=== PATIENT | male | born 1960 | race Caucasian/White ===

== ENCOUNTER → 2017-08-30 | Outpatient (CLI) | payer MEDICARE, SELFPAY ==
[~2017-08-30] MED LIST: ACET325 PO; AMLO5 PO; ASPI325EC PO; ASPI81CH; ASPI81CH PO; ATEN25; ATEN50; ATEN50 PO; ATOR80; ATOR80 PO; Amoxicillin875 MG PO; BISA5EC PO; BUPR100ER PO; Bactrim 400-801 EACH PO; CILO100 PO; CILO50; CILO50 PO; CITA20 PO; CLON1 PO; CLOP75; CLOP75 PO; COMBIVENT RESPIM4 GM INH; Cleocin HCl150 MG PO; DIPH50 PO; ESCI10; GABA600; HYDHCL25; HYDHCL25 PO; HYDPAM50 PO; Hair, Skin & N1 EACH PO; LATUDA40 MG PO; LISI20 PO; LISI5; LISI5 PO; MEGE40T; Megace Es625 MG/5 M PO; Milk Of Ma400 MG/5 M PO; Nicotine Patch1 EAC5 TD; PANT40; PANT40 PO; PRAZ1 PO; PRAZ2; PRAZ2 PO; QUET100 PO; QUET200; QUET200 PO; QUET25; TRAM50 PO; TRAZ50; Ultram50 MG PO; VENL150ER PO; VENL75ER; VENL75ER PO; VENLAFAXINE HCL75 MG PO; WARF5 PO; XARELTO20 MG PO; Zofran Odt4 MG SL
[2017-08-30 13:27] LABS: BASOPHILS ABSOLUTE AUTO 0.08 K/mm3 (0.00-0.23); BASOPHILS PERCENT AUTO 2 % (0-2); EOSINOPHILS ABSOLUTE AUTO 0.39 K/mm3 (0.00-0.68); EOSINOPHILS PERCENT AUTO 8 % (0-6); Hematocrit 39.9 % (37.0-53.0); IMMATURE GRAN ABSOLUTE AUTO 0.01 K/mm3 (0.00-0.10); IMMATURE GRAN PERCENT AUTO 0 % (0-1); LYMPHOCYTES ABSOLUTE AUTO 1.18 K/mm3 (0.84-5.20); LYMPHOCYTES PERCENT AUTO 24 % (21-46); MONOCYTES ABSOLUTE AUTO 0.51 K/mm3 (0.16-1.47); MONOCYTES PERCENT AUTO 10 % (4-13); Mean Corpuscular HGB 30.7 pg (26.0-34.0); Mean Corpuscular HGB Conc 32.6 g/dL (31.5-36.5); Mean Corpuscular Volume 94 fL (80-100); Mean Platelet Volume 10.3 fL (9.1-12.4); NEUTROPHILS ABSOLUTE AUTO 2.81 K/mm3 (1.96-9.15); NEUTROPHILS PERCENT AUTO 57 % (41-73); Platelet Count 234 K/mm3 (150-400); RDW Coefficient Variation 13.3 % (11.7-14.2); RDW Standard Deviation 46.1 fL (35.1-46.3); Red Blood Cell Count 4.24 M/mm3 (4.30-5.90); White Blood Cell Count 4.98 K/mm3 (4.00-11.30)
[2017-08-30 13:42] LABS: International Normalized Ratio 0.96
[2017-08-30 14:56] LABS: Anion Gap 8 mmol/L (6-16); Blood Urea Nitrogen 8 mg/dL (8-24); Bun/Creatinine Ratio 9.1 (12.0-20.0); CO2, Blood 26 mmol/L (21-32); Calcium, Blood 9.1 mg/dL (8.5-10.1); Chloride, Blood 102 mmol/L (98-108); Creatinine, Blood 0.88 mg/dL (0.60-1.20); Glomerular Filtration Rate >60 (60-); Glucose, Blood 95 mg/dL (70-99); Potassium, Blood 4.2 mmol/L (3.5-5.5); Sodium, Blood 136 mmol/L (136-145)
== END | disposition home or self-care (01) ==
LOC: LAB 11:30 → LAB SHORT 11:30 → EDSTATUS 08-14 15:40 → LAB FUT 08-14 15:40
PROVIDERS: Internal Medicine Interventional Cardiology
DX: E78.5 Hyperlipidemia, unspecified (principal); I10 Essential (primary) hypertension; I73.9 Peripheral vascular disease, unspecified; R79.89 Other specified abnormal findings of blood chemistry
CPT/HCPCS: 80048; 85025; 85610

== ENCOUNTER 2017-08-31 05:29 | Day surgery (SDC) | payer MEDICARE, SELFPAY ==
[~2017-08-31] VITALS: Ht 177.8 cm; Wt 62.0 kg
[~2017-08-31 05:29] MED LIST changes: -Bactrim 400-801 EACH PO; -DIPH50 PO; -LATUDA40 MG PO
[2017-08-31] MEDS ORDERED: DIPH50 PO (06:39)
== END 2017-08-31 14:30 | disposition home or self-care (01) ==
LOC: MHTC 05:29
PROC: 047J3DZ Dilation of Left External Iliac Artery with Intraluminal Device, Percutaneous Approach (ICD-10-PCS; principal; 2017-08-31)
DX: I70.212 Atherosclerosis of native arteries of extremities with intermittent claudication, left leg (principal); I10 Essential (primary) hypertension; F17.210 Nicotine dependence, cigarettes, uncomplicated; Z86.73 Personal history of transient ischemic attack (TIA), and cerebral infarction without residual deficits
CPT/HCPCS: 37221; 75625; 75710; 85347; 93005; 93010; 99152; 99153; C1725; C1769; C1876; C1894; J1644; J2250; J2720; J3010; J7030; J7040; Q9967

== ENCOUNTER 2017-10-11 17:59 | Emergency (ER) | payer MEDICARE, SELFPAY ==
[~2017-10-11] VITALS: Ht 177.8 cm; Wt 60.8 kg
[~2017-10-11 17:59] MED LIST changes: +DIPH50 PO
[2017-10-11] MEDS ORDERED: LATUDA40 MG PO (18:04)
[2017-10-11] MEDS ORDERED: Bactrim 400-801 EACH PO (19:21)
== END 2017-10-11 19:35 | disposition home or self-care (01) ==
LOC: ER 17:59
DX: M96.841 Postprocedural hematoma of a musculoskeletal structure following other procedure (principal); Z88.8 Allergy status to other drugs, medicaments and biological substances; Z79.899 Other long term (current) drug therapy; Z79.82 Long term (current) use of aspirin; I10 Essential (primary) hypertension; F32.9 Major depressive disorder, single episode, unspecified; F41.9 Anxiety disorder, unspecified; E78.5 Hyperlipidemia, unspecified; F43.10 Post-traumatic stress disorder, unspecified; Z87.891 Personal history of nicotine dependence
CPT/HCPCS: 76882; 99284

== ENCOUNTER → 2017-11-07 | Outpatient (CLI) | payer MEDICARE, SELFPAY ==
[~2017-11-07] MED LIST changes: +Bactrim 400-801 EACH PO; +LATUDA40 MG PO
== END ==
LOC: LAB 14:25 → LAB SHORT 14:25
DX: L02.91 Cutaneous abscess, unspecified (principal)
CPT/HCPCS: 87070; 87075; 87077; 87186; 87205

== ENCOUNTER → 2018-01-04 | Outpatient (CLI) | payer MEDICARE, SELFPAY ==
[2018-01-04 16:23] LABS: U Amphetamine Screen Not Detected; U Barbituate Screen Not Detected; U Benzodiazapine Screen Not Detected; U Buprenorphine Screen Not Detected; U Cannabinoids Screen DETECTED; U Cocaine Screen Not Detected; U Methadone Screen Not Detected; U Methamphetamine Screen Not Detected; U Opiates Screen Not Detected; U Oxycodone Screen Not Detected; U Phencyclidine Screen Not Detected; U Propoxyphene Screen Not Detected
== END ==
LOC: LAB SHORT 15:00
PROVIDERS: Nurse Practitioner Family
DX: Z51.81 Encounter for therapeutic drug level monitoring (principal); Z79.899 Other long term (current) drug therapy

== ENCOUNTER → 2018-07-11 | Outpatient (CLI) | payer MEDICARE ==
[2018-07-11 14:58] LABS: U Amphetamine Screen Not Detected; U Barbituate Screen Not Detected; U Benzodiazapine Screen DETECTED; U Buprenorphine Screen Not Detected; U Cannabinoids Screen DETECTED; U Cocaine Screen Not Detected; U Methadone Screen Not Detected; U Methamphetamine Screen Not Detected; U Opiates Screen Not Detected; U Oxycodone Screen Not Detected; U Phencyclidine Screen Not Detected
[2018-07-11 16:37] LABS: U Propoxyphene Screen Not Detected
== END ==
LOC: LAB SHORT 11:30 → LAB 11:30
PROVIDERS: Nurse Practitioner Family
DX: Z51.81 Encounter for therapeutic drug level monitoring (principal); Z79.899 Other long term (current) drug therapy

== ENCOUNTER 2018-11-21 12:12 | Day surgery (SDC) | payer MEDICARE ==
[~2018-11-21] VITALS: Ht 177.8 cm; Wt 62.0 kg
[~2018-11-21 12:12] MED LIST changes: +ANORO ELLIPTA1 EACH INH; +Cilostazol50 MG PO; +ESZO2 PO; +LO-DOSE ASPIRIN81 MG PO; +MULTI VITAMIN1 EACH PO; +Oxcarbazepine600 MG PO; +Prinivil10 MG PO; +VRAYLAR4.5 MG PO
== END 2018-11-21 13:53 | disposition home or self-care (01) ==
LOC: ORSCSDS 12:12
PROVIDERS: Internal Medicine Gastroenterology
PROC: 0DBK8ZX Excision of Ascending Colon, Via Natural or Artificial Opening Endoscopic, Diagnostic (ICD-10-PCS; principal; 2018-11-21 13:30)
DX: Z12.11 Encounter for screening for malignant neoplasm of colon (principal); Z86.010 Personal history of colon polyps; D12.2 Benign neoplasm of ascending colon; I10 Essential (primary) hypertension; I25.10 Atherosclerotic heart disease of native coronary artery without angina pectoris; F17.210 Nicotine dependence, cigarettes, uncomplicated; I69.354 Hemiplegia and hemiparesis following cerebral infarction affecting left non-dominant side; F41.8 Other specified anxiety disorders; Z79.899 Other long term (current) drug therapy; Z79.82 Long term (current) use of aspirin; Z79.01 Long term (current) use of anticoagulants
CPT/HCPCS: 88305; J2704

== ENCOUNTER → 2020-12-22 | Outpatient (CLI) | payer MEDICARE | END | disposition home or self-care (01) | LOC: LAB SHORT 08:01 → PLD 08:01 | DX: D48.9 Neoplasm of uncertain behavior, unspecified (principal) | CPT/HCPCS: 88305 ==

== ENCOUNTER 2021-10-04 09:57 | Day surgery (SDC) | payer MEDICARE ==
[~2021-10-04] VITALS: Ht 177.8 cm; Wt 66.2 kg
[~2021-10-04 09:57] MED LIST changes: +ASPIR 8181 M1 PO; -Cilostazol50 MG PO; -LO-DOSE ASPIRIN81 MG PO; +LOSARTAN POTAS100 M1 PO
[2021-10-04] MEDS ORDERED: NICO21TP TOP (10:46)
--- NOTE | 2021-10-04 15:47 | NUR ---
patient resting, hob at 30 degree. left groin site soft and nontender, no hematoma, no bleeding.
[2021-10-04] MEDS ORDERED: CLOP75 PO (15:51)
--- NOTE | 2021-10-04 17:22 | NUR ---
PATIENT VEBALIZED UNDERSTANDING OF DISCHARGE INSTRUCTIONS AND PRECAUTIONS. LEFT GROIN SITE REMAINS SOFT AND NONTENDER. NO SWELLING NO HEMATOMA. PATIENT HAS BEEN UP TO REST ROOM AND SITTING. IV SITE DCED WITH CATHETER INTACT. NO FURTHER QUESTIONS. PATIENT TAKEN TO WAITING TRUCK VIA WHEEL CAHIR. FRIEND DRIVING.
== END 2021-10-04 23:40 | disposition home or self-care (01) ==
LOC: MHTC 09:57
DX: I70.213 Atherosclerosis of native arteries of extremities with intermittent claudication, bilateral legs (principal); F17.210 Nicotine dependence, cigarettes, uncomplicated; I65.21 Occlusion and stenosis of right carotid artery; Z88.8 Allergy status to other drugs, medicaments and biological substances; Z86.73 Personal history of transient ischemic attack (TIA), and cerebral infarction without residual deficits
CPT/HCPCS: 37221; 37222; 37224; 75625; 75716; 75774; 76937; 99152; 99153; C1725; C1760; C1769; C1876; C1887; C1894; C2623; J1644; J2250; J3010; J7030; J7050; Q9967

== ENCOUNTER → 2023-10-16 | Outpatient (CLI) | payer OTHER ==
[~2023-10-16] MED LIST changes: +ANORO ELLIPTA1 EAC1 IH; +NICO21TP TOP
== END ==
LOC: LAB 09:29 → LAB SHORT 09:29
DX: L72.0 Epidermal cyst (principal)
CPT/HCPCS: 88304

== ENCOUNTER 2024-02-08 08:05 | Emergency (ER) | payer OTHER ==
[~2024-02-08] VITALS: Ht 177.8 cm; Wt 59.0 kg
[2024-02-08 08:32] LABS: BASOPHILS ABSOLUTE AUTO 0.06 K/mm3 (0.00-0.23); BASOPHILS PERCENT AUTO 1 % (0-2); EOSINOPHILS ABSOLUTE AUTO 0.09 K/mm3 (0.00-0.68); EOSINOPHILS PERCENT AUTO 2 % (0-6); Hematocrit 39.5 % (37.0-53.0); Hemoglobin 13.7 g/dL (13.5-17.5); IMMATURE GRAN ABSOLUTE AUTO 0.02 K/mm3 (0.00-0.10); IMMATURE GRAN PERCENT AUTO 0 % (0-1); LYMPHOCYTES PERCENT AUTO 4 % (21-46); MONOCYTES ABSOLUTE AUTO 0.78 K/mm3 (0.16-1.47); MONOCYTES PERCENT AUTO 14 % (4-13); Mean Corpuscular HGB 31.4 pg (26.0-34.0); Mean Corpuscular HGB Conc 34.7 g/dL (31.5-36.5); Mean Corpuscular Volume 90 fL (80-100); Mean Platelet Volume 10.8 fL (9.1-12.4); NEUTROPHILS ABSOLUTE AUTO 4.42 K/mm3 (1.96-9.15); NEUTROPHILS PERCENT AUTO 79 % (41-73); Platelet Count 171 K/mm3 (150-400); RDW Standard Deviation 43.3 fL (35.1-46.3); Red Blood Cell Count 4.37 M/mm3 (4.30-5.90); White Blood Cell Count 5.57 K/mm3 (4.00-11.30)
[2024-02-08] MEDS ORDERED: NS 1,000 ML IV SCH (08:40)
[2024-02-08] MEDS ORDERED: Ketorolac Tromethamine 15mg Vial IV ONE (08:40)
[2024-02-08] MEDS ORDERED: BELSOMRA20 MG PO (08:49)
[2024-02-08 08:50] LABS: Albumin/Globulin Ratio 1.3 (0.8-1.8); Bilirubin, Total 0.4 mg/dL (0.1-1.0); Bun/Creatinine Ratio 8.2 (12.0-20.0); Calcium, Blood 8.8 mg/dL (8.5-10.1); Creatinine, Blood 0.85 mg/dL (0.60-1.20); Potassium, Blood 3.8 mmol/L (3.5-5.5)
[2024-02-08 08:51] LABS: BAND PERCENT MAN 1 % (0-8); BASOPHILS PERCENT MAN 0 % (0-2); EOSINOPHILS ABSOLUTE MAN 0.11 K/mm3 (0.00-0.68); EOSINOPHILS PERCENT MAN 2 % (0-6); LYMPHOCYTES ABSOLUTE MAN 0.22 K/mm3 (0.84-5.20); LYMPHOCYTES PERCENT MAN 4 % (21-46); MONOCYTES ABSOLUTE MAN 0.33 K/mm3 (0.16-1.47); MONOCYTES PERCENT MAN 6 % (4-13); SEG NEUTROPHILS PERCENT MAN 87 % (41-73); TOTAL CELLS COUNTED 100
[2024-02-08 09:30] VITALS: BP 127/71
== END 2024-02-08 09:48 | disposition home or self-care (01) ==
LOC: ER 08:05
PROVIDERS: Emergency Medicine
DX: U07.1 COVID-19 (principal); F43.10 Post-traumatic stress disorder, unspecified; I10 Essential (primary) hypertension; F17.200 Nicotine dependence, unspecified, uncomplicated; Z86.73 Personal history of transient ischemic attack (TIA), and cerebral infarction without residual deficits; Z79.02 Long term (current) use of antithrombotics/antiplatelets; Z79.899 Other long term (current) drug therapy; Z88.8 Allergy status to other drugs, medicaments and biological substances
CPT/HCPCS: 80053; 85025; 96361; 96374; 99284-25; J1885; J7030